=== PATIENT | female | born 2000 | race Caucasian/White ===

== ENCOUNTER 2018-11-11 14:53 | Emergency (ER) | payer OTHER ==
[~2018-11-11] VITALS: Ht 165.1 cm; Wt 52.2 kg
== END 2018-11-11 16:50 | disposition home or self-care (01) ==
LOC: ER 14:53
DX: M54.5 Low back pain (principal)

== ENCOUNTER 2018-11-23 18:22 | Emergency (ER) | payer OTHER ==
[~2018-11-23] VITALS: Ht 167.6 cm; Wt 54.4 kg
== END 2018-11-23 21:40 | disposition home or self-care (01) ==
LOC: ER 18:22
DX: M62.838 Other muscle spasm (principal); M25.511 Pain in right shoulder; M62.830 Muscle spasm of back

== ENCOUNTER 2018-11-24 23:58 | Emergency (ER) | payer OTHER ==
[~2018-11-24] VITALS: Ht 165.1 cm; Wt 52.2 kg
== END 2018-11-25 01:05 | disposition home or self-care (01) ==
LOC: ER 23:58
DX: M25.511 Pain in right shoulder (principal); M62.838 Other muscle spasm

== ENCOUNTER 2019-03-21 21:20 | Emergency (ER) | payer OTHER ==
[~2019-03-21] VITALS: Ht 162.6 cm; Wt 49.9 kg
== END 2019-03-21 22:44 | disposition home or self-care (01) ==
LOC: ER 21:20
DX: M54.2 Cervicalgia (principal)

== ENCOUNTER 2019-10-24 18:05 | Emergency (ER) | payer OTHER ==
[~2019-10-24] VITALS: Ht 165.1 cm; Wt 52.2 kg
[2019-10-24] MEDS ORDERED: DICLOFENAC SODI75 MG PO (18:33)
== END 2019-10-24 18:43 | disposition home or self-care (01) ==
LOC: ER 18:05
DX: M79.632 Pain in left forearm (principal)

== ENCOUNTER 2020-05-26 03:18 | Emergency (ER) | payer OTHER ==
[~2020-05-26] VITALS: Ht 165.1 cm; Wt 54.4 kg
[~2020-05-26 03:18] MED LIST: DICLOFENAC SODI75 MG PO
== END 2020-05-26 12:50 | disposition home or self-care (01) ==
LOC: ER 03:18
DX: F12.920 Cannabis use, unspecified with intoxication, uncomplicated (principal); R07.89 Other chest pain; K29.60 Other gastritis without bleeding; N39.0 Urinary tract infection, site not specified

== ENCOUNTER 2020-12-14 00:28 | Emergency (ER) | payer OTHER ==
[~2020-12-14] VITALS: Ht 165.1 cm; Wt 52.2 kg
[2020-12-14] MEDS ORDERED: ALLEGRA-D 12 H1 EACH PO (02:46)
[2020-12-14] MEDS ORDERED: KETO10TA2 PO (02:46)
[2020-12-14] MEDS ORDERED: ALLERGY EYE DRO15 ML OP (02:48)
[2020-12-14] MEDS ORDERED: GENTAK5 ML OP (02:48)
== END 2020-12-14 02:56 ==
LOC: ER 00:28
DX: H10.89 Other conjunctivitis (principal)

== ENCOUNTER 2021-03-08 21:14 | Emergency (ER) | payer OTHER ==
[~2021-03-08] VITALS: Ht 165.1 cm; Wt 51.7 kg
[~2021-03-08 21:14] MED LIST changes: +ALLEGRA-D 12 H1 EACH PO; +ALLERGY EYE DRO15 ML OP; +GENTAK5 ML OP; +KETO10TA2 PO
[2021-03-09] MEDS ORDERED: PEPCID AC20 MG PO (03:03)
[2021-03-09] MEDS ORDERED: KETO10TA2 PO (03:03)
== END 2021-03-09 03:21 | disposition home or self-care (01) ==
LOC: ER 21:14
DX: S09.90XA Unspecified injury of head, initial encounter (principal); S46.911A Strain of unspecified muscle, fascia and tendon at shoulder and upper arm level, right arm, initial encounter; W18.39XA Other fall on same level, initial encounter; Y93.B9 Activity, other involving muscle strengthening exercises; Y92.019 Unspecified place in single-family (private) house as the place of occurrence of the external cause

== ENCOUNTER 2021-06-13 23:15 | Emergency (ER) | payer OTHER ==
[~2021-06-13] VITALS: Ht 165.1 cm; Wt 54.4 kg
[~2021-06-13 23:15] MED LIST changes: +PEPCID AC20 MG PO
[2021-06-14] MEDS ORDERED: KETO10TA2 PO (01:26)
== END 2021-06-14 01:37 ==
LOC: ER 23:15
DX: M62.838 Other muscle spasm (principal); R07.89 Other chest pain

== ENCOUNTER 2022-01-19 04:47 | Emergency (ER) | payer OTHER ==
[~2022-01-19] VITALS: Ht 157.5 cm; Wt 52.2 kg
[2022-01-19] MEDS ORDERED: ORPHENADRINE C100 MG PO (08:05)
[2022-01-19] MEDS ORDERED: DICLOFENAC POTA50 MG PO (08:05)
== END 2022-01-19 08:26 ==
LOC: ER 04:47
DX: S13.4XXA Sprain of ligaments of cervical spine, initial encounter (principal); W18.30XA Fall on same level, unspecified, initial encounter; Y93.41 Activity, dancing; Y92.9 Unspecified place or not applicable; M62.838 Other muscle spasm

== ENCOUNTER 2023-02-14 23:05 | Emergency (ER) | payer OTHER ==
[~2023-02-14] VITALS: Ht 165.1 cm; Wt 56.7 kg
[~2023-02-14 23:05] MED LIST changes: +DICLOFENAC POTA50 MG PO; +ORPHENADRINE C100 MG PO
== END 2023-02-15 05:44 | disposition home or self-care (01) ==
LOC: ER 23:05
DX: S91.109A Unspecified open wound of unspecified toe(s) without damage to nail, initial encounter (principal); X58.XXXA Exposure to other specified factors, initial encounter; Y93.89 Activity, other specified; Y92.89 Other specified places as the place of occurrence of the external cause; Y99.8 Other external cause status

== ENCOUNTER → 2024-11-14 | Emergency (ER) | payer OTHER ==
[~2024-11-14] VITALS: Ht 165.1 cm; Wt 56.7 kg
[2024-11-15 00:23] LABS: BASO % 0.5 % (0.1-1.2); EOS # 0.55 (0.04-0.54); EOS % 4.1 % (0.7-7.0); LYMPH # 3.33 (1.18-3.74); LYMPH % 25.1 % (19.3-53.1); MEAN PLATELET VOLUME 8.40 fl (9.4-12.4); MONO # 1.00 (0.24-0.82); MONO % 7.5 % (4.7-12.5); NEUT # 8.27 (1.56-6.13); NEUT % 62.3 % (34.0-71.1); RED CELL DISTRIBUTION WIDTH 11.6 % (11.6-14.4)
[2024-11-15 00:57] LABS: URINE APPEARANCE Clear; URINE BILIRRUBIN Negative (NEGATIVE); URINE BLOOD Negative; URINE COLOR Yellow; URINE GLUCOSE Negative (NEGATIVE); URINE KETONE Trace (NEGATIVE); URINE LEUKOCYTE Negative; URINE NITRATE Negative; URINE PROTEIN Negative (NEGATIVE); URINE UROBILINOGEN 1.0 E.U./dl
[2024-11-15 01:01] LABS: URINE BACTERIA 1520.2 uL (0.0-1933); URINE EPITHELIAL CELLS 51.6 uL (0.0-38.8); URINE RBC 5.1 uL (0.0-20.8); URINE WBC 19.2 uL (0.0-23.2)
[2024-11-15 01:21] LABS: URINE CAST 0.43 uL (0.0-1.40)
== END | disposition home or self-care (01) ==
LOC: ER 22:07
DX: R30.0 Dysuria (principal)